=== PATIENT | male | born 1970 | race Caucasian/White ===

== ENCOUNTER 2022-10-25 08:10 | Outpatient (CLI) | payer OTHER, SELFPAY ==
[2022-10-25 13:40] LABS: Albumin* 4.4 g/dL (3.3-5.0); Chloride* 106 mmol/L (96-114); Sodium* 144 mmol/L (135-149)
[2022-10-25 13:41] LABS: Potassium* 4.5 mmol/L (3.6-5.1)
[2022-10-25 13:42] LABS: Cholesterol* 113 mg/dL (90-199)
[2022-10-25 13:43] LABS: Alanine Aminotransferase* 27 U/L (4-50); Alkaline Phosphatase* 66 U/L (40-150); Aspartate Amino Transferase* 19 U/L (12-35); Bilirubin Total* 0.7 mg/dL (0.1-1.5); Blood Urea Nitrogen* 28 mg/dL (7-30); Carbon Dioxide* 29 mmol/L (20-32); Creatinine* 1.1 mg/dL (0.5-1.5); Estimated Glomerular Filt Rate 80 ml/min; Glucose* 125 mg/dL (60-115); Total Protein* 7.1 g/dL (6.0-8.3); Triglycerides* 138 mg/dL (40-149)
[2022-10-25 13:44] LABS: Calcium* 9.5 mg/dL (8.4-10.6); HDL Cholesterol* 47 mg/dL (>=40); LDL Cholesterol Calculated 38 mg/dL (<100)
[2022-10-25 13:51] LABS: Creatinine Urine 202.8 mg/dL
[2022-10-25 14:06] LABS: TSH With Reflex to FT4* 0.592 uIU/mL (0.270-4.200)
[2022-10-25 14:07] LABS: Microalbumin Creatinine Ratio 10 mg/g (0-30); Microalbumin Urine 4 mg/dL
== END 2022-10-25 08:11 | disposition home or self-care (01) ==
PROVIDERS: PCP Physician Assistant Medical; Visit Provider Physician Assistant Medical
DX: Z00.00 Encounter for general adult medical examination without abnormal findings (principal); E11.9 Type 2 diabetes mellitus without complications; E78.5 Hyperlipidemia, unspecified; I10 Essential (primary) hypertension; D64.9 Anemia, unspecified; E66.9 Obesity, unspecified
CPT/HCPCS: 80053; 80061; 82043; 82570; 84443

== ENCOUNTER 2023-11-02 11:17 | Outpatient (CLI) | payer OTHER, MEDICARE, SELFPAY | END 2023-11-02 11:18 | disposition home or self-care (01) | PROVIDERS: PCP Physician Assistant Medical; Visit Provider Physician Assistant Medical | DX: Z12.5 Encounter for screening for malignant neoplasm of prostate (principal); E11.9 Type 2 diabetes mellitus without complications; E78.2 Mixed hyperlipidemia; I10 Essential (primary) hypertension | CPT/HCPCS: 80053; 80061; 82043; 82570; 84443; G0103 ==

== ENCOUNTER 2023-12-07 16:41 | Emergency (ER) | payer OTHER, MEDICARE, SELFPAY ==
[2023-12-07] VITALS (37 sets, daily range): BP systolic 131–167; BP diastolic 70–100; PULSE 77–95; RESP 14–18; TEMP 36.7–36.9; O2SAT 93–98; BMI 31.5
--- NOTE | 2023-12-07 17:05 | ED_ITS ---
HPI - General Adult General Date Seen: 12/07/23 Chief complaint: Alcohol/Intoxication Stated complaint: abdominal pain Time Seen by Provider: 12/07/23 16:52 History of Present Illness HPI narrative: 53-year-old male with history of hypertension, hyperlipidemia, diabetes, anxiety, GERD, obesity, alcohol abuse, hepatic steatosis, He has a history of alcoholism. He had been an alcoholic for many years but developed alcoholic pancreatitis about 3 years ago so required hospitalization. After that he went through treatment through [facility] and had been sober for years. He had been through treatment in had 3 years over until he relapsed. He has been drinking again for about 6 months. He says he thought he could start drinking just a little bit a few months ago but has been drinking more and more heavily lately. He has a little bit vague about how much she is drinking. He says he has been going through a small-bowel of Tequila every couple of days. He also did bought a 1.75 L of vodka on Monday and finished it yesterday. He says he is not drinking as much these days as he was years ago before he went through treatment. Beginning yesterday he started developed upper abdominal pain radiating through to his back that is reminiscent of his previous pancreatitis. He has been nauseous. Several episodes of bile vomiting but no bloody emesis. In He is having abdominal pain and feels like he is having pancreatitis. He is feeling shaky and tremulous. He is having goose bumps. He is tearful. Last drink was at about 3 or 4:00 a.m. yesterday, roughly 21-26 hours prior to presentation. He says he was forthright and admitted is drinking to his and kids. He has a psychiatrist for his mental health and has not told his psychiatrist that he has been drinking again for the past few months. He feels like his depression and anxiety have been reasonably well controlled. He is not suicidal He is worried about how his drinking might affect his children and his grandchildren Most recent checkup was in October with . Notes indicate that he is on disability needed his annual paperwork. He was on chronic pain meds but trying to wean off of them. He has chronic pain in his neck and back due to degenerative disc disease. Med list includes baclofen, gabapentin 300 q.h.s., topiramate. He had previously been on oxycodone and buprenorphine but weaned off that. He is no longer on buprenorphine. He has oxycodone p.r.n.. He says his pain doctor gave him 16 pills of oxycodone last month and he still probably has 10 left. Related Data Home Medications Medication Instructions Recorded Confirmed albuterol sulfate 2.5 mg/3 mL 2.5 mg continuous nebulization PRN 06/22/22 11/02/23 (0.083 %) solution for nebulization albuterol sulfate 90 mcg/actuation 2 inhalation PRN 06/22/22 11/02/23 aerosol inhaler aspirin 81 mg tablet,delayed 81 mg PO DAILY 06/22/22 12/07/23 release baclofen 5 mg tablet 10 mg PO QDAY 06/22/22 11/02/23 bupropion HCl 150 mg 24 hr tablet, 150 mg PO DAILY 06/22/22 12/07/23 extended release doxycycline hyclate 100 mg tablet 100 mg PO BID PRN 06/22/22 11/02/23 ibuprofen 800 mg tablet 800 mg PO PRN pain 06/22/22 11/02/23 sennosides 8.6 mg tablet (senna) 17.2 mg PO QPM 04/04/23 11/02/23 tamsulosin 0.4 mg capsule 0.4 mg PO DAILY 04/04/23 12/07/23 topiramate 25 mg tablet 75 mg PO QPM 04/04/23 12/07/23 trazodone 50 mg tablet 100 mg PO QPM PRN 04/04/23 12/07/23 gabapentin 600 mg tablet 300 mg PO QHS 11/02/23 11/02/23 baclofen 10 mg tablet 10 - 20 mg PO 3XD PRN muscle spasm 12/07/23 12/07/23 gabapentin 300 mg capsule 300 mg PO QPM 12/07/23 12/07/23 hydroxyzine HCl 25 mg tablet 25 mg PO QID PRN anxiety 12/07/23 12/07/23 oxycodone 5 mg tablet 5 mg PO DAILY PRN chronic pain 12/07/23 12/07/23 Previous Rx's Medication Instructions Recorded dulaglutide 3 mg/0.5 mL 3 mg (0.5 mL) subcut QWEEK #6 mL 10/17/23 subcutaneous pen injector (Trulicity) amlodipine 10 mg tablet 10 mg PO DAILY #90 tabs 11/02/23 atorvastatin 80 mg tablet 80 mg PO .Bedtime #90 tabs 11/02/23 carvedilol 12.5 mg tablet 12.5 mg PO BID #180 tabs 11/02/23 olmesartan 20 mg tablet 20 mg PO DAILY #90 tabs 11/02/23 pantoprazole 20 mg tablet,delayed 20 mg PO QAM for acid reflux #90 11/02/23 release tabs tadalafil 5 mg tablet 5 mg PO DAILY #90 tabs 11/02/23 Allergies Allergy/AdvReac Type Severity Reaction Status Date / Time celecoxib Allergy Severe Rash Verified 11/02/23 11:04 lisinopril Allergy Mild Cough Verified 11/02/23 11:04 rofecoxib Allergy Mild Rash Verified 11/02/23 11:04 duloxetine AdvReac Severe confusion, Verified 11/02/23 11:04 memory loss [facility] Medical History (Updated 12/07/23 @ 21:35 by Mateus Keys MD) Osteonecrosis of both hips ?M87.9 - Osteonecrosis, unspecified (ICD-10) Basal cell carcinoma of skin of left breast ?C44.511 - Basal cell carcinoma of skin of breast (ICD-10) Fracture of lumbar vertebra ?S32.009A - Unspecified fracture of unspecified lumbar vertebra, initial encounter for closed fracture (ICD-10) Alcohol-induced acute pancreatitis ?K85.20 - Alcohol induced acute pancreatitis without necrosis or infection (ICD-10) Surgical History History of cervical spinal surgery ?Z98.890 - Other specified postprocedural states (ICD-10) Status post biopsy of skin ?Z98.890 - Other specified postprocedural states (ICD-10) History of colonoscopy with polypectomy ?Z98.890 - Other specified postprocedural states (ICD-10) ?Z86.010 - Personal history of colonic polyps (ICD-10) History of cervical spinal arthrodesis ?Z98.1 - Arthrodesis status (ICD-10) Family History Father Prostate cancer Thyroid disease Other Degenerative disc disease Social History Narrative: Alcoholism- was in treatment 01/29 and stopped alcohol since Does not use illicit drugs Former smoker Smoking Status: Never smoker Little interest or pleasure in doing things: more than half the days Feeling down, depressed, or hopeless: more than half the days Exam Narrative: Exam Narrative: Constitutional: Appears well-developed and well-nourished. Alert. Conversant but at times tearful. Tremulous.. Non toxic. Pulse and blood pressure are normal. HENT: Head: Atraumatic. Nose: Nose normal. Mouth/Throat: Oral mucosa is clear and moist. no trismus. Pharynx normal. Tonsils symmetric. No tonsillar enlargement, erythema, or exudate. Eyes: Conjunctivae normal. EOM normal. Pupils equal, round, and reactive to light. No scleral icterus. Neck: Normal range of motion. Neck supple. No tracheal deviation present. Cardiovascular: Normal rate, regular rhythm. No gallop. No friction rub. No mu rmur heard. Symmetric radial artery pulses Pulmonary/Chest: Effort normal. No stridor. No respiratory distress. No wheezes. No rales. No rhonchi . No tenderness. Abdominal: Soft. Bowel sounds normal. No distension. No mass. Marked upper abdominal tenderness makes it difficult to palpate for hepatomegaly but I do not feel any definite need liver enlargement. No focal right upper quadrant tender ness. No rebound. No guarding. Musculoskeletal: RUE: Normal range of motion. No tenderness. No deformity LUE: Normal range of motion. No tenderness. No deformity RLE: Normal range of motion. No edema. No tenderness. No deformity LLE: Normal range of motion. No edema. No tenderness. No deformity Neurological: Alert and oriented to person, place, and time. Normal strength. CN II-VII intact. No sensory deficit. GCS eye subscore is 4. GCS verbal subscore is 5. GCS motor subscore is 6. Normal coordination Skin: Skin is warm and dry. No rash noted. No pallor. Normal capillary refill. Psychiatric: Tearful. Tremulous. Endorses heavy alcohol use. Last drink was yesterday about 26 hours ago. He wants to quit drinking again. Also concerned about his epigastric pain and concerned that he may have another bout of alcoholic pancreatitis. Const: Vital Signs, click to edit/add: Vital Signs - 24 hr 12/07/23 16:48 12/07/23 17:14 12/07/23 17:14 Temperature 98.3 F Pulse Rate 82 Pulse Rate [Pulse Oximeter] 88 Respiratory Rate 16 Blood Pressure Blood Pressure [Le ft Arm] Blood Pressure [Ri ght Upper Arm] 158/79 H Pulse Oximetry 98 96 98 Oxygen Delivery Me thod Room Air Room Air 12/07/23 17:15 12/07/23 17:30 12/07/23 17:32 Temperature Pulse Rate 95 85 83 Pulse Rate [Pulse Oximeter] Respiratory Rate Blood Pressure 151/83 H Blood Pressure [Le ft Arm] Blood Pressure [Ri ght Upper Arm] Pulse Oximetry 98 95 97 Oxygen Delivery Me thod 12/07/23 17:45 12/07/23 18:00 12/07/23 18:02 Temperature Pulse Rate 79 83 83 Pulse Rate [Pulse Oximeter] Respiratory Rate Blood Pressure 140/99 H Blood Pressure [Le ft Arm] Blood Pressure [Ri ght Upper Arm] Pulse Oximetry 95 93 95 Oxygen Delivery Me thod 12/07/23 18:15 12/07/23 18:30 12/07/23 18:31 Temperature Pulse Rate 86 82 81 Pulse Rate [Pulse Oximeter] Respiratory Rate Blood Pressure 144/92 H Blood Pressure [Le ft Arm] Blood Pressure [Ri ght Upper Arm] Pulse Oximetry 97 93 94 Oxygen Delivery Me thod 12/07/23 18:45 12/07/23 18:46 12/07/23 19:01 Temperature 98.5 F Pulse Rate 83 82 Pulse Rate [Pulse Oximeter] 80 Respiratory Rate 18 Blood Pressure Blood Pressure [Le ft Arm] 144/92 H Blood Pressure [Ri ght Upper Arm] Pulse Oximetry 96 96 94 Oxygen Delivery Me thod Room Air 12/07/23 19:02 12/07/23 19:15 Temperature Pulse Rate 82 81 Pulse Rate [Pulse Oximeter] Respiratory Rate Blood Pressure 144/84 H Blood Pressure [Le ft Arm] Blood Pressure [Ri ght Upper Arm] Pulse Oximetry 94 97 Oxygen Delivery Me thod Course Vital Signs Vital signs: Initial Vital Signs Temperature 98.3 F 12/07/23 16:48 Temperature Source Oral 12/07/23 16:48 Pulse Rate 88 12/07/23 16:48 Respiratory Rate 16 12/07/23 16:48 Blood Pressure 158/79 H 12/07/23 16:48 Blood Pressure Mean 105 12/07/23 16:48 Blood Pressure Position Sitting 12/07/23 16:48 Pulse Oximetry 98 12/07/23 16:48 Oxygen Delivery Method Room Air 12/07/23 16:48 Vital Signs Temperature 98.3 F 12/07/23 16:48 Pulse Rate 88 12/07/23 16:48 Respiratory Rate 16 12/07/23 16:48 Blood Pressure 158/79 H 12/07/23 16:48 Pulse Oximetry 98 12/07/23 16:48 Oxygen Delivery Method Room Air 12/07/23 16:48 Temperature 98.5 F 12/07/23 18:46 Pulse Rate 81 12/07/23 19:15 Respiratory Rate 18 12/07/23 18:46 Blood Pressure 144/84 H 12/07/23 19:02 Pulse Oximetry 97 12/07/23 19:15 Oxygen Delivery Method Room Air 12/07/23 18:46 Medications Administered Medications: Generic Name Dose Route Start Last Admin Trade Name Freq PRN Reason Stop Dose Admin Hydromorphone HCl 1 mg 12/07/23 17:23 12/07/23 17:36 Hydromorphone 0.5 Mg/0.5 Ml Inj IVP 1 mg Q1H PRN Administration Pain Lorazepam 1 - 2 mg 12/07/23 17:23 12/07/23 18:49 Lorazepam 2 Mg/Ml Inj IVP 1 mg Q1H PRN Administration Discontinued Medications Generic Name Dose Route Start Last Admin Trade Name Freq PRN Reason Stop Dose Admin Folic Acid 1 mg/ Multivitamins 1,011.2 mls @ 252.8 mls/hr 12/07/23 17:24 12/07/23 18:00 10 ml/ Thiamine HCl 100 mg/ IV 12/07/23 21:23 252.8 mls/hr Sodium Chloride .Q4H SCOTT Administration Ondansetron HCl 4 mg 12/07/23 17:23 12/07/23 17:34 Ondansetron 2 Mg/Ml Inj IVP 12/07/23 17:24 4 mg ONCE ONE Administration Medical Decision Making MDM Narrative Medical decision making narrative: 53-year-old male with a history of alcohol abuse, relapse for the past several months drinking heavily for the past few days presents to the ER today about 24 hours after his last drink with concern for tremulousness, anxiety, nausea, as well as epigastric abdominal pain. He was concerned he might have a recurrent bout of alcoholic pancreatitis. 1. Abdominal pain. Laboratory workup fortunately reassuring. Lipase normal. Patient really says that he had a bout of pancreatitis about 3 years ago and has not had any trouble with it since then. Therefore with acute pain today, I think this would represent acute pancreatitis. Lipase is normal is reassuring. Doubtful to represent chronic pancreatitis in the absence of any symptoms for the past 3 years. At this point I do not think the patient needs to be admitted from a pancreatitis standpoint. 2. Liver. Patient does have history of alcohol abuse. LFTs are normal. 3. Renal/electrolytes. Patient does have borderline hypokalemia with a potassium of 3.5. Kidney function normal. BUN is 23 and creatinine 1.0 which probably suggest prerenal/dehydration. IV fluids administered here in the ER. 4. Alcohol withdrawal. Patient did present with nausea, abdominal pain, tremulousness, goosebumps. Initial CIWA scale was 18. After 1 mg Ativan came down to 13. After a 2nd mg came down further. Patient is clinically looking and feeling better after IV benzos. He is feeling much better in is only minimally tremulous after meds. He passed p.o. challenge and is doing well. Upper abdominal pain is also improving Discussed with the patient's , by speaker phone. She is willing to come pick him up. At this point with reasonable clinical compensate think it is reasonable to try to manage his alcohol withdrawal in an outpatient basis. Prescriptions for Instymeds Ativan 1 tablet every 4-6 hours as needed for withdrawal symptoms. His height my full help monitor is withdrawal and she will controlled meds to avoid any overdose or mixing with alcohol. Prescription for Zofran, Instymeds, provided to use for nausea. Precautions for return to the ER reviewed with the patient and his . Benzo precautions reviewed. Questions answered. Plan will be outpatient follow-up with primary care and Psychiatry for ongoing alcohol treatment. He is instructed to return to the ER if any worsening all call withdrawal symptoms, or worsening abdominal pain, fever, migratory pain, uncontrolled vomiting, or any concerns. Lab Data Labs: Lab Results 12/07/23 12/07/23 Range/Units 17:10 17:23 WBC 7.73 (4.50-11.00) K/uL RBC 4.07 L (4.30-5.90) m/uL Hgb 13.6 (13.5-17.5) gm/dL Hct 39.3 (37.0-53.0) % MCV 97 (80-100) fL MCH 33 (26-34) pg MCHC 35 (32-36) gm/dL RDW Coeff of Jamse 12.1 (11.5-15.5) % Plt Count 232 (140-440) K/uL Neut % (Auto) 73.5 H (42.0-72.0) % Lymph % (Auto) 19.9 L (20-44) % Gordon % (Auto) 5.4 (0.0-11.0) % Eos % (Auto) 1.0 (0.0-7.0) % Baso % (Auto) 0.1 (0.0-3.0) % Neut # (Auto) 5.70 (1.7-7.0) K/uL Lymph # (Auto) 1.50 (0.90-2.90) K/uL Gordon # (Auto) 0.40 (0.00-0.90) K/UL Eos # (Auto) 0.08 (0.00-0.50) K/uL Baso # (Auto) 0.01 (0.00-0.30) K/uL Abs Immat Gran (auto) 0.01 (0.00-0.30) K/uL Imm/Tot Granulo (auto) 0.1 % Sodium 136 (135-149) mmol/L Potassium 3.5 L (3.6-5.1) mmol/L Chloride 106 (96-114) mmol/L Carbon Dioxide 25 (20-32) mmol/L Anion Gap 5 L (7-15) mEq/L BUN 23 (7-30) mg/dL Creatinine 1.0 (0.5-1.5) mg/dL Estimated Creat Clear 97.04 Estimated GFR 89 ml/min Glucose 113 (60-115) mg/dL Lactate 0.6 (0.5-1.9) mmol/L Calcium 9.1 (8.4-10.6) mg/dL Magnesium 1.7 (1.5-2.6) mg/dL Total Bilirubin 1.2 (0.1-1.5) mg/dL AST 34 (12-35) U/L ALT 21 (4-50) U/L Alkaline Phosphatase 77 (40-150) U/L Total Protein 7.6 (6.0-8.3) g/dL Albumin 4.4 (3.3-5.0) g/dL Lipase 287 (23-300) U/L Ethyl Alcohol < 0.01 L (0.01-0.03) % Lab Acknowledgement Test Added Discharge Plan Discharge Clinical Impression: Alcohol withdrawal, Abdominal discomfort, epigastric Patient Disposition: Home w/ Parent or Adult Condition: Stable Instructions: Alcohol Withdrawal (DC), Abdominal Pain (ED) Additional Instructions: As we discussed, monitor for signs of alcohol withdrawal such as shakiness, anxiety, nausea, sweatiness, hallucinations, or confusion. Use Ativan 1 mg every 4-6 hours as needed for withdrawal. If you have worsening symptoms that are not getting better with Ativan, return to the ER right away. For your upper abdominal pain there is no sign of pancreatitis today. This may be stomach acid corona on the lining of your stomach from alcohol. Please drink plenty of fluids and stick to a bland diet for 2-3 days and this should get better. If your abdominal pain gets worse, spreads year lower abdomen, or if you develop a fever, have uncontrolled vomiting, or if you have any other concerns, return to the ER right away. Use caution with Ativan because it can cause drowsiness. Do not mix it with alcohol. Do not drive for at least 8 hours after taking Ativan. Please follow-up with your regular doctor and with your psychiatrist for further alcohol treatment. Prescriptions: No Action gabapentin 600 mg tablet 300 mg PO QHS amlodipine 10 mg tablet 10 mg PO DAILY Qty: 90 3RF atorvastatin 80 mg tablet 80 mg PO .Bedtime Qty: 90 3RF carvedilol 12.5 mg tablet 12.5 mg PO BID Qty: 180 3RF olmesartan 20 mg tablet 20 mg PO DAILY Qty: 90 3RF pantoprazole 20 mg tablet,delayed release (DR/EC) 20 mg PO QAM Qty: 90 3RF tadalafil 5 mg tablet 5 mg PO DAILY Qty: 90 3RF bupropion HCl 150 mg tablet extended release 24 hr 150 mg PO DAILY baclofen 5 mg tablet 10 mg PO QDAY albuterol sulfate 90 mcg/actuation HFA aerosol inhaler 2 inhalation PRN albuterol sulfate 2.5 mg /3 mL (0.083 %) solution for nebulization 2.5 mg continuous nebulization PRN aspirin 81 mg tablet,delayed release (DR/EC) 81 mg PO DAILY doxycycline hyclate 100 mg tablet 100 mg PO BID PRN Rx Instructions: TAKE ACCORDING TO ACTION PLAN. ibuprofen 800 mg tablet 800 mg PO PRN (Reason: pain) Patient Comments: TAKE 1 TABLET BY MOUTH EVERY 8 HOURS WITH FOOD NEEDED trazodone 50 mg tablet 100 mg PO QPM PRN topiramate 25 mg tablet 75 mg PO QPM sennosides [senna] 8.6 mg tablet 17.2 mg PO QPM tamsulosin 0.4 mg capsule 0.4 mg PO DAILY baclofen 10 mg tablet 10 - 20 mg PO 3XD PRN (Reason: muscle spasm) gabapentin 300 mg capsule 300 mg PO QPM hydroxyzine HCl 25 mg tablet 25 mg PO QID PRN (Reason: anxiety) oxycodone 5 mg tablet 5 mg PO DAILY PRN (Reason: chronic pain) Trulicity 3 mg/0.5 mL pen injector 3 mg subcut QWEEK Qty: 6 3RF Follow Up/Referrals: Arminda Patel PA-C [Primary Care Provider] - Stand Alone Forms: [facility] Info Instructions
[2023-12-07 17:16] LABS: Lactate* 0.6 mmol/L (0.5-1.9)
[2023-12-07 17:19] LABS: Hematocrit 39.3 % (37.0-53.0); Hemoglobin* 13.6 gm/dL (13.5-17.5); Lymphocytes Percent Auto 19.9 % (20-44); Mean Corpuscular HGB Conc 35 gm/dL (32-36); Mean Corpuscular Hemoglobin 33 pg (26-34); Mean Corpuscular Volume 97 fL (80-100); Monocytes Percent Auto 5.4 % (0.0-11.0); Neutrophils Percent Auto 73.5 % (42.0-72.0); Platelet Count* 232 K/uL (140-440); RDW Coefficient of Variation % 12.1 % (11.5-15.5); Red Blood Count 4.07 m/uL (4.30-5.90); White Blood Count* 7.73 K/uL (4.50-11.00)
[2023-12-07 17:20] LABS: Basophils Absolute Auto 0.01 K/uL (0.00-0.30); Basophils Percent Auto 0.1 % (0.0-3.0); Eosinophils Absolute Auto 0.08 K/uL (0.00-0.50); Immature Granulocytes Abs Auto 0.01 K/uL (0.00-0.30); Immature Granulocytes Pct Auto 0.1 %
[2023-12-07 17:27] LABS: Slide Review Reflex No
[2023-12-07] MEDS: ONDANSETRON 2 MG/ML inj 4 MG IVP (17:34)
[2023-12-07] MEDS: LORazepam 2 MG/ML inj IVP ×3 (17:36→22:25)
[2023-12-07] MEDS: HYDROmorphone 0.5 mg/0.5 ml inj 1 MG IVP ×2 (17:36→22:22)
[2023-12-07 17:38] LABS: Albumin* 4.4 g/dL (3.3-5.0); Chloride* 106 mmol/L (96-114); Sodium* 136 mmol/L (135-149)
[2023-12-07 17:39] LABS: Potassium* 3.5 mmol/L (3.6-5.1)
[2023-12-07 17:40] LABS: Est. Creatinine Clearance* 97.04; Estimated Glomerular Filt Rate 89 ml/min
[2023-12-07 17:41] LABS: Alkaline Phosphatase* 77 U/L (40-150); Anion Gap 5 mEq/L (7-15); Aspartate Amino Transferase* 34 U/L (12-35); Bilirubin Total* 1.2 mg/dL (0.1-1.5); Blood Urea Nitrogen* 23 mg/dL (7-30); Calcium* 9.1 mg/dL (8.4-10.6); Carbon Dioxide* 25 mmol/L (20-32); Glucose* 113 mg/dL (60-115); Lipase* 287 U/L (23-300); Total Protein* 7.6 g/dL (6.0-8.3)
[2023-12-07 17:42] LABS: Alanine Aminotransferase* 21 U/L (4-50); Magnesium* 1.7 mg/dL (1.5-2.6)
[2023-12-07 17:57] LABS: Ethanol* < 0.01 % (0.01-0.03)
== END 2023-12-07 22:42 | disposition home or self-care (01) ==
PROVIDERS: Emergency Provider Emergency Medicine; PCP Physician Assistant Medical
DX: R10.13 Epigastric pain (principal); F10.239 Alcohol dependence with withdrawal, unspecified
CPT/HCPCS: 36415; 80053; 82077; 83605; 83690; 83735; 85025; 94761; 96374; 96375; 99284; J1170; J2060; J2405; J3411; J7030

== ENCOUNTER 2024-04-29 13:53 | Outpatient (CLI) | payer OTHER, MEDICARE, SELFPAY ==
--- OUTSIDE RECORDS SUMMARY | 2024-04-29 13:59 | XMS_ITS | Referral Summary ---
Author Organization [facility] Address [address] [place] [address] Care Team Providers Care Silo Painter Name Role Phone Arminda Patel PA-C Primary Care Provider [phone] Allergies Active Allergy Reactions Criticality Noted Date Comments Celecoxib High 02/15/2021 Other reaction(s): rash Duloxetine High 02/15/2021 Other reaction(s): Confusion, memory loss Fd&C Blue #2 (Indigotine) High 02/15/2021 Other reaction(s): Confusion, memory loss Gabapentin High 02/15/2021 Other reaction(s): depression-brain fog with high dose, tolerates lower doses Lisinopril Cough Low 02/15/2021 Rofecoxib Low 02/15/2021 Other reaction(s): rash Medications Medication Sig Dispensed Refills Start Date End Date Status albuterol (PROAIR HFA/PROVENTIL HFA/VENTOLIN HFA) 108 (90 Base) MCG/ACT inhaler 2 puffs every 4 hours as needed 02/01/2021 Active albuterol (PROVENTIL) (2.5 MG/3ML) 0.083% neb solution 2.5 mg every 4 hours as needed 11/12/2020 Active amLODIPine (NORVASC) 10 MG tablet Take 10 mg by mouth at bedtime 01/28/2021 Active atorvastatin (LIPITOR) 80 MG tablet Take 80 mg by mouth At Bedtime 12/01/2020 Active diclofenac (VOLTAREN) 1 % topical gel Apply 4 g topically 4 times daily as needed 12/05/2020 Active doxycycline hyclate (VIBRA-TABS) 100 MG tablet Take 100 mg by mouth as needed Copd as needed, twice daily 11/02/2020 Active TRULICITY 3 MG/0.5ML SOPN Inject 3 mg Subcutaneous once a week 12/12/2020 Active TRELEGY ELLIPTA 100-62.5-25 MCG/INH oral inhaler Inhale 1 puff into the lungs as needed Daily as needed in spring time 02/01/2021 Active ONETOUCH ULTRA test strip USE 1 TEST STRIP DAILY 12/19/2020 Active loperamide (IMODIUM) 2 MG capsule Take 2 mg by mouth 4 times daily as needed 02/11/2021 Active metFORMIN (GLUCOPHAGE) 1000 MG tabletIndications: Type 2 Diabetes Mellitus Take 1,000 mg by mouth daily (with dinner) 02/08/2021 Active methylPREDNISolone (MEDROL) 32 MG tablet Take 32 mg by mouth as needed copd 11/02/2020 Active NARCAN 4 MG/0.1ML nasal spray 02/16/2021 Active ondansetron (ZOFRAN-ODT) 4 MG ODT tab Take 4 mg by mouth every 6 hours as needed 04/10/2020 Active pantoprazole (PROTONIX) 20 MG EC tablet Take 20 mg by mouth daily 12/01/2020 Active tiZANidine (ZANAFLEX) 2 MG tablet Take 4 mg by mouth 3 times daily as needed 01/02/2021 Active topiramate (TOPAMAX) 25 MG tablet Take 50 mg by mouth at bedtime 02/16/2021 Active traZODone (DESYREL) 50 MG tablet Take 50 mg by mouth at bedtime 12/14/2020 Active tamsulosin (FLOMAX) 0.4 MG capsule Take 0.4 mg by mouth every evening Active olmesartan (BENICAR) 20 MG tablet Take 20 mg by mouth daily Active carvedilol (COREG) 12.5 MG tablet Take 12.5 mg by mouth 2 times daily (with meals) Active buprenorphine (SUBUTEX) 2 MG SUBL sublingual tablet Place 2 mg under the tongue 2 times daily Active cetirizine (ZYRTEC) 10 MG tablet Take 10 mg by mouth daily Active sennosides (SENOKOT) 8.6 MG tablet Take 2 tablets by mouth at bedtime Active tadalafil (CIALIS) 5 MG tablet Take 5 mg by mouth every 24 hours Active gabapentin (NEURONTIN) 100 MG capsule Take 300 mg by mouth at bedtime Active buPROPion (WELLBUTRIN XL) 150 MG 24 hr tablet Take 150 mg by mouth every morning Active baclofen (LIORESAL) 10 MG tablet Take 20 mg by mouth at bedtime Active acetaminophen (TYLENOL) 325 MG tabletIndications: Status post total replacement of left hip Take 2 tablets (650 mg) by mouth every 4 hours as needed for other (mild pain) 100 tablet 07/18/2023 Active aspirin 81 MG EC tabletIndications: Status post total replacement of left hip Take 1 tablet (81 mg) by mouth 2 times daily 60 tablet 07/18/2023 Active senna-docusate (SENOKOT-S/PERICOL DENIZ) 8.6-50 MG tabletIndications: Status post total replacement of left hip Take 1-2 tablets by mouth 2 times daily as needed for constipation Take while on oral narcotics to prevent or treat constipation. 30 tablet 07/18/2023 Active polyethylene glycol (MIRALAX) 17 g packetIndications: Status post total replacement of left hip Take 17 g by mouth daily 7 packet 07/18/2023 Active ibuprofen (ADVIL/MOTRIN) 600 MG tabletIndications: Status post total replacement of left hip Take 1 tablet (600 mg) by mouth every 6 hours as needed for mild pain 30 tablet 07/18/2023 Active hydrOXYzine (ATARAX) 25 MG tabletIndications: Status post total replacement of left hip Take 1 tablet (25 mg) by mouth every 6 hours as needed for itching or anxiety (with pain, moderate pain; sleep aid) 30 tablet 07/18/2023 Active HYDROmorphone (DILAUDID) 4 MG tabletIndications: Status post total replacement of left hip Take 1 tablet (4 mg) by mouth every 3 hours as needed for severe pain 25 tablet 07/19/2023 Active Active Problems Problem Noted Date Diagnosed Date S/P total hip arthroplasty 07/18/2023 Social History Tobacco Use Types Packs/Day Years Used Date Smoking Tobacco: Former Cigarettes Smokeless Tobacco: Former Alcohol Use Standard Drinks/Week Comments Not Currently 0 (1 standard drink = 0.6 oz pur e alcohol) quit drinking 2 years ago Adolescent Education Answer Date Record ed Getting School Help Needed Not on file 09/27 /2023 Sex and Gender Information Value Date Recorded Sex Assigned at Not on file Gender Identity Not on file Sexual Orientation Not on file Last Filed Vital Signs Vital Sign Reading Time Taken Comments Blood Pressure 138/76 07/19/2023 8:08 AM [employer] Pulse 78 07/19/2023 8:08 AM [employer] Temperature 37 ??C (98.6 ??F) 07/19/2023 8:08 AM [employer] WORK[employer] Respiratory Rate 18 07/19/2023 8:08 AM [employer] WORK[employer] Oxygen Saturation 98% 07/19/2023 8:08 AM [employer] Inhaled Oxygen Concentration - - Weight 108.9 kg (240 lb) 07/18/2023 6:20 AM [employer] Height 188 cm (6' 2) 07/18/2023 6:20 AM [employer] Body Mass Index 30.81 07/18/2023 6:20 AM [employer] Plan of Treatment Not on file Goals Goal Patient Goal Type Associated Problems Recent Progress Patient-Stated? Author Total Joint Replacement Hip Pathway Care Plan Total Joint Replacement Hip Pathway No [employer] Implanted Type Area Charter Pilot Device Identifier Shelf Expiration Date Model / Serial / Lot Imp Liner Hip Depuy Coden Altrx [id number] +[id number] 1221-36-456 - [id number] Implanted:Qty : 1 on 07/18/2023 by Chaz Shirley MD at [facility] Total Joint Componen t/Insert Left: Hip [employer] [id number] 11/09/2027 1221-36-456 / / [id number] Imp Shell Acet Depuy Coden Gription 56mm [id number] - [id number] Implanted:Qty : 1 on 07/18/2023 by Chaz Shirley MD at [facility] Total Joint Componen t/Insert Left: Hip [employer] [id number] 02/08/2033 [id number] / / [id number] Imp Head Femoral Depuy Ceramic 36mm +5mm [id number] - [id number] Implanted:Qty : 1 on 07/18/2023 by Chaz Shirley MD at [facility] Total Joint Componen t/Insert Left: Hip [employer] [id number] 05/11/2028 1365-36-320 / / [id number] Imp Stem Fem Depuy Actis Std Collar Tpr Sz 7mm 1010-11-070 - [id number] Implanted:Qty : 1 on 07/18/2023 by Chaz Shirley MD at [facility] Total Joint Componen t/Insert Left: Hip [facility]- [id number] 10/11/2032 [id number] / / [id number] Procedures Procedure Name Priority Date/Time Associated Diagnosis Comments GLUCOSE BY METER Routine 07/19/2023 6:[address] CHEST W/O CONTRAST Routine 09/21/2020 11:19 AM G[employer] WORKMAN from Last 3 Months or Most Recently Relevant to Health Maintenance Results * (ABNORMAL) Glucose by meter (07/19/2023 6:05 AM [employer] WORK[employer]) GLUCOSE BY METER POCT 112(H) 70 - 99 mg/dL 07/19/2023 6:12 AM G[employer] WORKMAN [facility] POCT RESULTS Blood, Capillary BLOOD SPECIMEN / Unknown 07/19/2023 6:05 AM G[employer] WORKMAN 07/19/2023 6:12 AM [employer] WORKMAN Chaz Shirley MD [facility] POCT [facility] POCT RESULTS [address] [place] [address] from Last 3 Months or Most Recently Relevant to Health Maintenance Additional Health Concerns Active Problems Noted Date Diagnosed Date Total Joint Replacement Hip Pathway 05/17/2023 Advance Directives For more information, please contact: [phone] * Full Code (Latest Code Status on File) Date Activated Date Inactivated Comments 07/18/2023 1:08 PM 07/19/2023 12:04 PM All basic a nd advanced life-sustaining interventions are performed as appropriate Question Answer Comments Code status determined by: Unable to dis cuss and no AD/POLST on file; continue PREVIOUSLY ORDERED code status Care Teams Silo Painter Relationship Specialty Start Date End Date Arminda Patel PA-C [place] [address] [place] [address] PCP - General 06/13/23
--- OUTSIDE RECORDS SUMMARY | 2024-04-29 13:59 | XMS_ITS | Clinical Summary ---
Author Organization [facility] Address [address] [place] [address] Care Team Providers Care Healthcare Customer Service Name Role Phone Arminda Patel PA-C Primary Care Provider [phone] Allergies Active Allergy Reactions Criticality Noted Date [...] Comments Blood Pressure 138/76 07/19/2023 8:08 AM GUNCOT[employer] P[employer]ER Pulse 78 07/19/2023 8:08 AM [employer] P[employer]ER Temperature 37 ??C (98.6 ??F) 07/19/2023 8:08 AM [employer] P[employer]ER Respiratory Rate 18 07/19/2023 8:08 AM [employer] P[employer]ER Oxygen Saturation 98% 07/19/2023 8:08 AM [employer] PACKER Inhaled Oxygen Concentration - - Weight 108.9 kg (240 lb) 07/18/2023 6:20 AM GUNCOT[employer] PACKER Height 188 cm (6' 2) 07/18/2023 6:20 AM [employer] P[employer] Body Mass Index 30.81 07/18/2023 6:20 AM GUNC[employer]TON PACKER Plan of Treatment Health Maintenance Due Date Last Done Comments ADVANCE CARE PLANNING 1968 ANNUAL REVIEW OF HM ORDERS 1968 CT COLONOGRAPHY 1968 FIT 1968 FLEX SIG 1968 LIPID 1968 sDNA (Cologuard) 1968 COLONOSCOPY 1978 COLORECTAL CANCER SCREENING 1978 HIV SCREENING 12/05/1983 HEPATITIS C SCREENING 1986 MEDICARE ANNUAL WELLNESS VISIT 1986 ZOSTER IMMUNIZATION (1 of 2) 2018 LUNG CANCER SCREENING 09/21/2021 09/21/2020, 020 COVID-19 Vaccine ( season) 2023 10/25/2021, 12/19/2020, 11/28/2020 PHQ-2 (once per calendar year) 2023 INFLUENZA VACCINE (#1) 2024 3, 06/22/2022, 06/23/2021, Additional history exists GLUCOSE 07/19/2026 07/19/2023, 04/2023, 07/18/2023, Additional history exists DTAP/TDAP/TD IMMUNIZATION (3 - Td or Tdap) 06/15/2027 06/15/2017, 08/27/2010, 09/11/1998 HEPATITIS B IMMUNIZATION Completed 014, 09/20/2013, 08/12/2013 Pneumococcal Vaccine: Pediatrics (0 to 5 Years) and At-Risk Patients (6 to 64 Years) Aged Out 07/06/2018 No longer eligible based on patient's age to complete this topic HPV IMMUNIZATION Aged Out No longer e ligible based on patient's age to complete this topic IPV IMMUNIZATION Aged Out No longer e ligible based on patient's age to complete this topic MENINGITIS IMMUNIZATION Aged Out No l onger eligible based on patient's age to complete this topic RSV MONOCLONAL ANTIBODY Aged Out No l onger eligible based on patient's age to complete this topic Goals Goal Patient Goal Type Associated Problems Recent Progress Patient-Stated? Author Total Joint Replacement Hip Pathway Care Plan Total Joint Replacement Hip Pathway No [employer] Implanted Type Area Fairing Man Device Identifier Shelf Expiration Date Model / Serial / Lot Imp Liner Hip Depuy [place] Altrx [id number] +[id number] 1221-36-456 - [id number] Implanted:Qty : 1 on 07/18/2023 by Chaz Shirley MD at [facility] Total Joint Componen t/Insert Left: Hip [employer] [id number] 11/09/2027 1221-36-456 / / [id number] Imp Shell Acet Depuy [place] Gription 56mm [id number] - [id number] Implanted:Qty : 1 on 07/18/2023 by Chaz Shirley MD at [facility] Total Joint Componen t/Insert Left: Hip [employer]- [id number] 02/08/2033 [id number] / / [id number] Imp Head Femoral Depuy Ceramic 36mm +5mm [id number] - [id number] Implanted:Qty : 1 on 07/18/2023 by Chaz Shirley MD at [facility] Total Joint Componen t/Insert Left: Hip [employer]- [id number] 05/11/2028 1365-36-320 / / [id number] Imp Stem Fem Depuy Actis Std Collar Tpr Sz 7mm 1010-11-070 - [id number] Implanted:Qty : 1 on 07/18/2023 by Chaz Shirley MD at [facility] Total Joint Componen t/Insert Left: Hip J&J [facility]- [id number] 10/11/2032 [id number] / / [id number] Procedures Procedure Name Priority Date/Time Associated Diagnosis Comments GLUCOSE BY METER Routine 07/19/2023 6:[address] CHEST W/O CONTRAST Routine 09/21/2020 11:19 AM [employer] PACKER from Last 3 Months or Most Recently Relevant to Health Maintenance Results * (ABNORMAL) Glucose by meter (07/19/2023 6:05 AM G[employer] PACKER) GLUCOSE BY METER POCT 112(H) 70 - 99 mg/dL 07/19/2023 6:12 AM [employer] PACKER [facility] POCT RESULTS Blood, Capillary BLOOD SPECIMEN / Unknown 07/19/2023 6:05 AM [employer] P[employer]ER 07/19/2023 6:12 AM [employer] P[employer]ER Chaz Shirley MD [facility] POCT [facility] POCT RESULTS [address] [place] [address] from Last 3 Months or Most Recently Relevant to Health Maintenance Additional Health Concerns Active Problems Noted Date Diagnosed Date Total Joint Replacement Hip Pathway 05/17/2023 Advance Directives For more information, please contact: [phone] * Full Code (Latest Code Status on File) Date Activated Date Inactivated Comments 07/18/2023 1:08 PM 07/19/2023 12:04 PM All basic a nd advanced life-sustaining interventions are performed as appropriate Question Answer Comments Code status determined by: Unable to dis cuss and no AD/POLST on file; continue PREVIOUSLY ORDERED code status Care Teams Healthcare Customer Service Relationship Specialty Start Date End Date Arminda Patel PA-C [place] [address] [place] [address] PCP - General 06/13/23
--- OUTSIDE RECORDS SUMMARY | 2024-04-29 14:00 | XMS_ITS | Clinical Summary ---
Author Organization [facility] Address [place], [place] [address] Care Team Providers Care Flight Test Data Acquisition Technician Name Role Phone Unavailable Primary Care Provider Unavailabl e Allergies Active Allergy Reactions Criticality Noted Date Comments Lisinopril Cough 12/15/2015 Rofecoxib Rash 01/05/2006 vioxx Medications Medication Sig Dispensed Refills Start Date End Date Status indomethacin (INDOCIN) 50 mg capsuleIndications:Gr eat toe pain 1 oral three times daily for 2 days with meals, then twice daily for 2 days, then daily for a day, as needed for gout or toe pain attacks 90 capsule 1 04/02/2014 Active Blood-Glucose Meter (ONE TOUCH VERIO IQ METER)Indications:Kristie betes mellitus, type 2 (HC) Dispense glucose meter, test strips and lancets covered by the patient insurance. Test 1 times per day. Diagnosis diabetes mellitus 1 Device 0 12/24/2014 Active lancets (ONE TOUCH DELICA) 33 gauge miscIndications:Diabe kia mellitus, type 2 (HC) As directed. Dispense item covered by pt ins. 250.00 NIDDM type II - Test 1 time/day 90 Each 2 12/24/2014 Active blood sugar diagnostic (ONETOUCH ULTRA TEST) stripIndications:Diab etes type 2, controlled (HC) Dispense item covered by pt ins. 250.00 NIDDM type II - Test 1 time/day 90 Strip 3 04/06/2016 Active medication order composerIndications:S jhoan stenosis in cervical region,Cervical spondylosis with myelopathy,Cervicalgi a P34X - GEOFF/MELOX/ADALBERTO/B UP/CLON/CYC/MEHREEN/ PENT 10//1/0.2/2/6 /3% Apply 1-2 gm to affected area 3-4 times daily. Rub in for 1-2 minutes 240 g 0 04/06/2016 Active diclofenac 1 % topical (VOLTAREN) gelIndications:Cervic algia Apply twice daily as needed to neck due to pain 1 Tube 3 06/24/2016 Active amLODIPine (NORVASC) 10 mg tabletIndications:HTN (hypertension), benign Take 1 tablet by mouth once daily. 90 tablet 2 06/24/2016 Active aspirin (ECOTRIN) 81 mg enteric coated tabletIndications:HTN (hypertension), benign Take 1 tablet by mouth once daily with a meal. 0 09/21/2016 Active ranitidine (ZANTAC) 150 mg tabletIndications:Gas troesophageal reflux disease, esophagitis presence not specified Take 1 tablet by mouth 2 times daily. 60 tablet 11/29/2016 Active albuterol (PROVENTIL) 0.083 % neb solutionIndications:C OPD exacerbation (HC) Inhale 3 mL via a nebulizer every 6 hours if needed. 1 box 12/28/2016 Active metoprolol succinate SR (TOPROL XL) 200 mg Sustained-Release tabletIndications:HTN (hypertension), benign Take 1 tablet by mouth once daily. 90 tablet 12/28/2016 Active pantoprazole (PROTONIX) 20 mg tabletIndications:Gas troesophageal reflux disease, esophagitis presence not specified Take 1 tablet by mouth once daily. 90 tablet 2 12/28/2016 Active budesonide (PULMICORT) 1 mg/2 mL neb suspensionIndications :Chronic obstructive pulmonary disease, unspecified COPD type (HC) Inhale 1 mg via a nebulizer 2 times daily. For acute COPD flare up 15 mL 1 01/04/2017 Active albuterol HFA 90 mcg/actuation inhalerIndications:Ch ronic obstructive pulmonary disease, unspecified COPD type (HC) Inhale 2 Puffs by mouth every 4 hours if needed. 1 Inhaler 01/04/2017 Active fluticasone (FLOVENT) 220 mcg/Actuation inhalerIndications:Ch ronic obstructive pulmonary disease, unspecified COPD type (HC) Inhale 1 Puff by mouth 2 times daily. 1 Inhaler 3 01/04/2017 Active losartan (COZAAR) 100 mg tabletIndications:HTN (hypertension), benign TAKE ONE TABLET BY MOUTH EVERY DAY 90 tablet 1 01/10/2017 Active furosemide (LASIX) 40 mg tabletIndications:HTN (hypertension), benign,Peripheral edema TAKE ONE TABLET BY MOUTH EVERY MORNING 90 tablet 02/01/2017 Active metFORMIN (GLUCOPHAGE) 1,000 mg tabletIndications:Typ e 2 diabetes mellitus with complication, without long-term current use of insulin (HC) TAKE ONE TABLET BY MOUTH TWICE A DAY WITH MEALS 120 tablet 02/01/2017 Active atorvastatin (LIPITOR) 80 mg tabletIndications:Hyp erlipidemia, unspecified hyperlipidemia type TAKE ONE TABLET BY MOUTH EVERY DAY 90 tablet 02/01/2017 Active TRULICITY 1.5 mg/0.5 mL injectionIndications: Diabetes type 2, controlled (HC) INJECT 1.5MG ONCE A WEEK 4 Each 03/09/2017 Active tiZANidine (ZANAFLEX) 2 mg tabletIndications:Cer vicalgia Take 1 tablet by mouth at bedtime. 30 tablet 03/09/2017 Active sildenafil citrate (VIAGRA) 100 mg tabletIndications:Ere ctile dysfunction, unspecified erectile dysfunction type Take 1 tablet by mouth once daily if needed for Erectile Dysfunction. Dispense generic 45 tablet 1 03/25/2017 Active HYDROcodone-acetamino phen, 5-325 mg, (NORCO) per tabletIndications:Spi nal stenosis in cervical region,Cervical spondylosis with myelopathy Take 1 tablet twice daily as needed for severe pain Max 60 tablets/month. 60 tablet 04/05/2017 Active fluticasone (50 mcg per actuation) nasal solution (FLONASE)Indications: Non-seasonal allergic rhinitis due to pollen INHALE ONE SPRAY INTO EACH NOSTRIL EVERY DAY 16 g 05/05/2017 Active Active Problems Problem Noted Date Diagnosed Date Type 2 diabetes mellitus wit h complication, without long-term current use of insulin 09/21/2016 Right peroneal tendonosis 06/07/2016 Controlled substance agreement signed 04/09/2016 Overview: CSA 04/06/16 diagnosis: Chronic neck pain, s/p C-spine fusion x 2, discharged from Orthopedics. Girard 5/325 1 tab twice daily,# 60/month 90 day supply printed at visits. Family Fresh . Toxassure at next visit. Chronic obstructive pulmonary disease 12/15/2015 Hyperlipidemia 11/14/2014 Gout 02/28/2014 FHx: prostate cancer 12/26/2012 Elevated liver enzymes 04/30/2012 Carpal tunnel syndrome 03/29/2011 Bulging disc-C6-7 02/14/2011 Obesity 08/14/2009 Erectile dysfunction 10/06/2008 Cervicalgia 08/07/2006 Displacement of intervertebr al disc, site unspecified, without myelopathy 08/07/2006 Spinal stenosis in cervical region 08/07/2006 Pain in limb 08/07/2006 Lesion of ulnar nerve 08/07/2006 Cervical spondylosis with myelopathy 08/07/2006 Degeneration of cervical intervertebral disc Obstructive sleep apnea (adult) (pediatric) 01/2006 Contusion of chest wall 01/13/2006 SEBORRHEIC - KERATOSIS 02/25/2005 Esophageal reflux 07/15/2002 Overview: EGD 06/2013 reflux, no follow up EGD needed HTN (hypertension), benign Cervical spine disease Overview: s/p fusion Resolved Problems Problem Noted Date Diagnosed Date Resolved Date Diabetes mellitus 05/06/2013 12/15/2015 Impaired fasting glucose 12/25/2010 PHOTOKERATITIS-OU 08/15/2002 08/12/2013 Immunizations Name Administration Dates Next Due HepA-HepB (Twinrix) 08/12/2013 Hepatitis B (Adult) 02/28/2014,09/20/2013 Influenza, IIV3 (Age >=3 years) 08/12/2013 Influenza, IIV4 06/06/2016,07/29/2015,07/28/2014 Td (Age >=7 Years) 09/11/1998 Tdap 08/27/2010 Family History Medical History Relation Name Comments Genetic Other 1 uncontributory Cancer Other 2 Self-Skin Relation Name Status Comments Brother 1 Alive Brother 2 Alive Brother 3 Alive Brother 4 Alive Father Alive Mother Alive Other 1 Other 2 Social History Tobacco Use Types Packs/Day Years Used Date Smoking Tobacco: Former Cigarettes 0.5 10 1 10/15/1995 - 08/14/2006 Smokeless Tobacco: Never Tobacco Cessation:Counseling Given: Yes Alcohol Use Standard Drinks/Week Comments Yes 0 (1 standard drink = 0.6 oz pur e alcohol) occ Sex and Gender Information Value Date Recorded Sex Assigned at Not on file Gender Identity Not on file Sexual Orientation Not on file Obstetrics History Last Filed Vital Signs Vital Sign Reading Time Taken Comments Blood Pressure 129/87 01/04/2017 2:47 PM CDT Pulse 89 01/04/2017 2:47 PM CDT Temperature 36.8 ??C (98.3 ??F) 11/29/2016 2:48 PM CD T Respiratory Rate 18 03/12/2011 4:00 PM CDT Oxygen Saturation 96% 11/08/2016 2:22 PM NEGATIVE TURNER APPRENTICE Inhaled Oxygen Concentration - - Weight 137.9 kg (304 lb 1.6 oz) 01/04/2017 2:44 PM CDT Height 187.3 cm (6' 1.75) 09/21/2016 8:03 AM CS T Body Mass Index 39.31 09/21/2016 8:03 AM NEGATIVE TURNER APPRENTICE Plan of Treatment Health Maintenance Due Date Last Done Comments HIV for age 15-65 12/05/1983 Hepatitis C screening for age 18-79 1986 Colonoscopy through age 75 2013 BMI (ht and wt on same day) for age 18+ 09/21/2017 09/21/2016, 04/06/2016, 12/31/2015, Additional history exists Depression screening for age 12+ 09/21/2017 09/21/2016, 09/18/2015 Zoster (shingles) series for age 50+ (1 of 2) 2018 Tetanus booster 08/27/2020 08/27/2010, 09/11/1998 Lipids for age 45-75 03/23/2021 03/23/2016, 11/14/2014, 02/28/2014, Additional history exists COVID-19 vaccine series (2022-24 season) 2023 Influenza for age 50-64 05/12/2024 06/06/20 16, 07/29/2015, 07/28/2014, Additional history exists Tdap Completed 08/27/2010 Pneumococcal series for age 6-64 Aged Out No longer eligible based on patient's age to complete this topic Goals Goal Patient Goal Type Associated Problems Recent Progress Patient-Stated? Author BLOOD PRESSURE - MAINTAINS BP less than 140/90 Blood Pressure No Rika Ahn MD Medical Devices Implanted Type Area Model Builder Display Device Identifier Shelf Expiration Date Model / Serial / Lot Screw Self Tap 4.0x14mm Fixed Ang - [id number] n2011 Implanted:Qty : 2 on 03/11/2011 at [facility] Spine Implants N/A: Cervical Vertebrae Medtronic 876-714# / LD#[id number] / Screw Spinal [id number] Self Tap Titnm [place] - Sld#[id number] n2011 Implanted:Qty : 2 on 03/11/2011 at [facility] Spine Implants N/A: Cervical Vertebrae [employer] 876-814# / LD#[id number] / Block Jp [id number] - [id number] Implanted:Qty : 1 on 03/11/2011 at [facility] N/A: Cervical Vertebrae SPINAL GRAFT 07/09/[id number] / [id number] / [id number] Description:C6-7 Plate Cerv Ant 23mm [place] Vision 976-123 - Sld#[id number] n2011 Implanted:Qty : 1 on 03/11/2011 at [facility] N/A: Cervical Vertebrae [employer] 976-123# / LD#[id number] / Description:C6-7 Procedures Procedure Name Priority Date/Time Associated Diagnosis Comments LIPID PANEL W REFLEX MEASURED LDL Routine 03/23/2016 8:15 AM CDT Mixed hyperlipidemia from Last 3 Months or Most Recently Relevant to Health Maintenance Results * (ABNORMAL) LIPID PANEL W REFLEX MEASURED LDL (03/23/2016 8:15 AM CDT) [facility] CHOLESTEROL,TOTAL 127 100 - 199 mg/dL 03/23/2016 7:05 PM CDT [facility] TRIGLYCERIDES 270(H) <150 mg/dL 03/23/2016 7:05 PM CDT [facility] HDL CHOLESTEROL 32(L) >40 mg/dL 03/23/2016 7:05 PM CDT [facility] NON-HDL CHOLESTEROL 95 <145 mg/dl 03/23/2016 7:05 PM CDT [facility] CHOL/HDL RATIO 3.97 <4.50 03/23/2016 7:05 PM CDT [facility] LDL CHOLESTEROL 41 <=130 mg/dL 03/23/2016 7:05 PM CDT [facility] PATIENT STATUS FASTING 03/23/2016 7:05 PM CDT [facility] Blood BLOOD SPECIMEN / Unknown Venipuncture / Unknown 03/23/2016 8:15 AM CDT 03/23/2016 8:15 AM CDT Sarah Nieves DO CHEMISTRY [facility] [address] [place] [address], from Last 3 Months or Most Recently Relevant to Health Maintenance Advance Directives * Full Code (Latest Code Status on File) Date Activated Date Inactivated Comments 03/11/2011 3:21 PM 03/12/2011 7:48 PM * Full Code Date Activated Date Inactivated Comments 03/11/2011 1:56 AM 03/11/2011 3:21 PM * Full Code Date Activated Date Inactivated Comments 08/13/2009 8:18 PM 08/14/2009 5:28 PM * Full Code Date Activated Date Inactivated Comments 08/13/2009 11:02 AM 08/13/2009 8:18 PM
--- OUTSIDE RECORDS SUMMARY | 2024-04-29 14:00 | XMS_ITS | Encounter Summary ---
Author Organization [facility] Address [address] [place] [address] Care Team Providers Care Maori Liaison Adviser Name Role Phone Elsewhere, Pcp Primary Care Provider Unavailabl e Reason for Referral * Outpatient (Routine) - Authorized Specialty Diagnoses / Procedures Referred By Rose Marie mcintyre Referred To Contact Pain Medicine Diagnoses Stenosis Spinal Cervical Polyneuropathy Chronic Pain Syndrome Arminda Patel, PXuAXu-CXu [address] [place] [address] [facility] Referral ID Status Reason Start Date Expiration Date V isits Requested Visits Authorized [id number] Authorized 04/12/2024 10/12/2025 1 1 Encounter Details Date Type Department Care Team (Late st Contact Info) Description 04/12/2024 [facility] [address] [place] [address] Arminda Patel P.A.-Robb [address] [place] [phone] Stenosis Spinal Cervical (Primary Dx); Polyneuropathy; Chronic Pain Syndrome Social History Tobacco Use Types Packs/Day Years Used Date Smoking Tobacco: Former Cigarettes 0.3 10.2 0 09/12/1989 - 12/05/1999 Smokeless Tobacco: Former Chew Quit: 12/28/1997 Alcohol Use Standard Drinks/Week Comments Not Currently 0 (1 standard drink = 0.6 oz pur e alcohol) Humiliation, Afraid, Rape, and Kick questionnair e Answer Date Recorded Within the last year, have y ou been afraid of your partner or ex-partner? No 02/09/2023 Within the last year, have y ou been humiliated or emotionally abused in other ways by your partner or ex-partner? No Within the last year, have y ou been kicked, hit, slapped, or otherwise physically hurt by your partner or ex-partner? No 02/09/2023 Within the last year, have y ou been raped or forced to have any kind of sexual activity by your partner or ex-partner? No 02/09/2023 Social Connection and Isolat ion Panel [NHANES] Answer Date Recorded In a typical week, how many times do you talk on the phone with family, friends, or neighbors? More than three times a week 01/13/2020 How often do you get togethe r with friends or relatives? Twice a week 01/13/2020 How often do you attend chur ch or jain services? Patient declined 01/13/2020 Do you belong to any clubs o r organizations such as orthodox groups, unions, fraternal or athletic groups, or school groups? No 01/13/2020 How often do you attend meet ings of the clubs or organizations you belong to? Never 01/13/2020 Are you , , di vorced, , never , or living with a partner? 01/13/2020 AUDIT-C Answer Date Recorded Frequency of Alcohol Consumption Not on file 04/23/2020 Q2: How many drinks containi ng alcohol do you have on a typical day when you are drinking? 1 or 2 04/23/2020 Frequency of Binge Drinking Not on file 04/11 Overall Financial Resource Strain (CARDIA) Answe r Date Recorded How hard is it for you to pa y for the very basics like food, housing, medical care, and heating? Not very hard 02/09/2023 PHQ-2 Answer Date Recorded PHQ-2 Score 3 09/07/2023 [facility] - Occupational Stress Questionnaire Answer Date Recorded Do you feel stress - tense, restless, nervous, or anxious, or unable to sleep at night because your mind is troubled all the time - these days? Rather much 01/23/2020 Exercise Vital Sign Answer Date Recorde d On average, how many days pe r week do you engage in moderate to strenuous exercise (like a brisk walk)? 4 days 02/09/2023 On average, how many minutes do you engage in exercise at this level? 40 min 02/09/2023 Hunger Vital Sign Answer Date Recorded Within the past 12 months, y ou worried that your food would run out before you got the money to buy more. Never true 02/10/20 Within the past 12 months, t he food you bought just didn't last and you didn't have money to get more. Never true 02/09/2023 PRAPARE - Transportation Answer Date Re corded In the past 12 months, has l ack of transportation kept you from medical appointments or from getting medications? No 09/2022 In the past 12 months, has l ack of transportation kept you from meetings, work, or from getting things needed for daily living? No 02/09/2023 Depression Answer Date Recor ded PHQ-9 Total Score (max 27) 11 09/07 Nutrition Answer Date Recorded Nutrition: EVOO Fat Source Unknown 02/09 On average, how many serving s of fruits and vegetables do you eat per day (serving size is equal to 1 cup or approximately the size of a tennis ball)? 0-2 02/09/2023 Dental Answer Date Recorded Dental: Regular Dentist Yes 02/10/20 Employment Answer Date Recorded Employment status Permanently disabled 3 Housing Stability Answer Date Recorded What is your living situation today? [facility] place to live 02/09/2023 Education Answer Date Recorded What is the highest level of school you have completed or the highest degree you have received? Associate degree: occupational, technical, or vocational program 01/13/2020 Sex and Gender Information Value Date Recorded Sex Assigned at Male 02/09/2023 1:14 PM CDT Gender Identity Male 03/24/2020 11:00 AM CDT Sexual Orientation Straight 03/24/2020 11 :00 AM CDT documented as of this encounter Plan of Treatment Scheduled Referrals Name Type Priority Associated Diagnoses Order Schedule [facility] Referral Outpatient Referral Routine Stenosis Spinal Cervical Polyneuropathy Chronic Pain Syndrome Expected: 04/12/2024 (Approximate), Expires: 07/13/2025 documented as of this encounter Visit Diagnoses Diagnosis Stenosis Spinal Cervical- Primary Polyneuropathy Chronic Pain Syndrome documented in this encounter Additional Health Concerns Assessment Noted Time PHQ-9 Depression Total Score: 11 09/07/2 023 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
--- OUTSIDE RECORDS SUMMARY | 2024-04-29 14:00 | XMS_ITS | Clinical Summary ---
Author Organization [facility] Address [address] [place] [id number] Phone [email or web address] Care Team Providers Care Biomedical Analytical Scientist Name Role Phone Unavailable Primary Care Provider Unavailabl e Medications Medication Sig Dispensed Refills Start Date End Date Status tadalafil (Cialis) 20 MG tabletIndications:E rectile dysfunction, unspecified erectile dysfunction type Take 1 tablet (20 mg total) by mouth if needed for erectile dysfunction (1-2 hours before intercourse. No more than 1 dose in 48 hours). 18 tablet 3 01/03/2023 Active Encounters Date Type Department Care Team Description 04/10/2024 Claims Summary [facility] Office [address] [place] [address] Provider, Claims Summary MD Mal from Last 3 Months Social History Tobacco Use Types Packs/Day Years Used Date Smoking Tobacco: Never Assessed Sex and Gender Information Value Date Recorded Sex Assigned at Not on file Gender Identity Not on file Sexual Orientation Not on file Plan of Treatment Health Maintenance Due Date Last Done Comments Dental Cleaning/Exam 1968 HIV Screening 1968 Hepatitis C Screening 1968 Annual Preventive Exam 1986 Hep B Infection Screening - Surface Antigen 1986 Colorectal Cancer Screening 1998 Zoster Immunization (1 of 2) 2018 Pneumococcal: Ped (0 to 5 Yrs) and At-Risk Member (6 to 64 Yrs) (2 of 2 - PCV) 07/06/2019 07/06/2018 Covid-19 Immunization (1 - 2022- season) 2023 Influenza Immunization (#1) 2024 Tetanus (Tdap or Td) Immunization 06/15/2027 06/15/2017, 08/27/2010, 09/11/1998 Hepatitis A Immunization Aged Out 08/12/2013 No longer eligible based on patient's age to complete this topic Hepatitis B Immunization Completed 014, 09/20/2013, 08/12/2013 HIB Immunization Aged Out No longer e ligible based on patient's age to complete this topic HPV Immunization Aged Out No longer e ligible based on patient's age to complete this topic Polio Immunization Aged Out No longer eligible based on patient's age to complete this topic
--- OUTSIDE RECORDS SUMMARY | 2024-04-29 14:00 | XMS_ITS | Clinical Summary ---
Author Organization [facility] Address [address] [place] [address] Care Team Providers Care Er Rn Name Role Phone Elsewhere, Pcp Primary Care Provider Unavailabl e Source Comments Patient records contain information from all sites at [facility]. For routine questions regarding patient records, call [phone] during business hours, M-F 8:00 AM - 5:00 PM Central Time. Record requests for emergency care only can be directed to [phone] at any time.[facility] Allergies Active Allergy Reactions Criticality Noted Date Comments Celecoxib Rash Low 09/30/2015 Duloxetine Other (see comments) 02/10/2023 Memory concerns Gabapentin Other (see comments) High 02/15/2021 Other reaction(s): depression-brain fog with high dose, tolerates lower doses House Dust Mite Other (see comments) 01/10/2020 Lisinopril Cough 12/15/2015 Rofecoxib Rash Low 01/05/2006 vioxx Medications Medication Sig Dispensed Refills Start Date End Date Status tiZANidine (ZANAFLEX) 2 mg tablet Take 2 mg by mouth every 8 (eight) hours as needed. Side effects, not using. 03/09/2017 Active pantoprazole (PROTONIX) 20 mg EC tablet Take 20 mg by mouth every morning before breakfast. 12/28/2016 Active metFORMIN (GLUCOPHAGE) 1,000 mg tablet Take 1,000 mg by mouth daily. 02/01/2017 Active fluticasone propionate (FLONASE) 50 mcg/actuation nasal spray Administer into affected nostril(s) as needed. 05/05/2017 Active dulaglutide (Trulicity) 1.5 mg/0.5 mL pen injector injection Inject 1.5 mg under the skin every 7 (seven) days. 03/09/2017 Active amLODIPine (NORVASC) 10 mg tablet Take 10 mg by mouth daily. 06/24/[address] Active [address] tablet Take 81 mg by mouth daily. 09/21/2016 Active atorvastatin (LIPITOR) 80 mg tablet Take 80 mg by mouth daily. 02/01/2017 Active budesonide (PULMICORT) 1 mg/2 mL nebulizer solution Inhale 1 mg as needed. 01/04/2017 Active cetirizine (ZyrTEC) 10 mg tablet Take 10 mg by mouth daily. Active albuterol 0.63 mg/3 mL nebulizer solution Take 0.63 mg by nebulization every 6 (six) hours as needed for wheezing. Active OneTouch Ultra Blue Test Strip strips 1 test daily. for testing 06/25/2020 Active oxyCODONE (ROXICODONE) 5 mg immediate release tablet Take 1 tablet by mouth 3 (three) times a day. 08/27/2020 Active albuterol (ACCUNEB) 2.5 mg /3 mL nebulizer solution Inhale 1 mL by nebulization as needed. 07/23/2020 Active fluticasone-umeclidi nium-vilanterol (Trelegy Ellipta) 100-62.5-25 mcg/actuation inhaler Inhale 1 puff once daily. 28 each 11 11/02/2020 Active baclofen (LIORESAL) 10 mg tablet TAKE 1-2 TABLETS BY MOUTH 3 TIMES DAILY NEEDED FOR MUSCLE SPASMS. 01/11/2023 Active carvediloL (COREG) 12.5 mg tablet 2 (two) times a day. 12/28/2022 Active hydrOXYzine (ATARAX) 25 mg tablet daily. 02/16/2021 Active ibuprofen (MOTRIN) 800 mg tablet TAKE 1 TABLET BY MOUTH 2 TIMES DAILY NEEDED WITH FOOD FOR PAIN. 01/11/2023 Active naloxone (Narcan) 4 mg/actuation nasal spray 02/16/2021 Active olmesartan (BENICAR) 20 mg tablet 01/17/2023 Active senna 8.6 mg tablet Take 17.2 mg by mouth at bedtime. 01/23/2023 Active tadalafiL (CIALIS, ADCIRCA) 20 mg tablet 01/04/2023 Active topiramate (TOPAMAX) 25 mg tablet Take 25 mg by mouth daily. 02/16/2021 Active tamsulosin (FLOMAX) 0.4 mg 24 hr capsule Take 1 capsule (0.4 mg total) by mouth daily. 90 capsule 3 02/16/2023 Active tadalafiL (Cialis) 5 mg tablet Take 1 tablet (5 mg total) by mouth as needed for erectile dysfunction. May take up to 15 mg. Do not exceed more than 20mg per day 90 tablet 3 03/06/2023 Active diclofenac sodium (VOLTAREN) 1 % gel Apply 4 g topically. 12/05/2020 Active ibuprofen (MOTRIN) 600 mg tablet Take 600 mg by mouth. 07/18/2023 Active acetaminophen (TYLENOL) 325 mg tablet Take 650 mg by mouth. 07/18/2023 Active buPROPion XL (WELLBUTRIN XL) 150 mg 24 hr tablet Take 150 mg by mouth. Active gabapentin (NEURONTIN) 300 mg capsule 07/20/2023 Active ondansetron ODT (ZOFRAN-ODT) 4 mg disintegrating tablet Dissolve 4 mg in the mouth. 04/10/2020 Active sennosides-docusate sodium (SENOKOT-S) 8.6-50 mg per tablet Take 1-2 tablets by mouth. 07/18/2023 Active traZODone (DESYREL) 50 mg tablet TAKE 1-2 TABS BY MOUTH AT BEDTIME NEEDED FOR SLEEP Active amoxicillin (AMOXIL) 500 mg tablet TAKE 4 TABLETS BY MOUTH 1 HOUR BEFORE DENTAL APPOINTMENT 07/31/2023 Active doxycycline hyclate (VIBRA-TABS) 100 mg tablet TAKE 1 TAB BY MOUTH 2XDAILY X10 DAYS. BEGIN TAKING AT ONSET OF EXACERBATION PER ACTION PLAN 20 tablet 10/26/2023 Active ipratropium-albutero L (DUONEB) 0.5-2.5 mg/3 mL nebulizer solutionIndications: Chronic Cough INHALE 3 ML BY NEBULIZATION 4 (FOUR) TIMES A DAY NEEDED FOR SHORTNESS OF BREATH. 360 mL 11 10/26/2023 Active methylPREDNISolone (MEDROL) 32 mg tabletIndications:Ch ronic Cough Take 1 tablet (32 mg total) by mouth daily for 10 days. Begin taking at onset of exacerbation per your action plan. 10 tablet 11/03/2023 Active albuterol 90 mcg/actuation inhalerIndications:C hronic Cough INHALE 2 PUFFS EVERY 4 HOURS NEEDED FOR WHEEZING 18 g 11 03/13/2024 Active Active Problems Problem Noted Date Diagnosed Date Chronic Pain Syndrome 08/08/2023 Abnormal Stress Test 08/01/2023 Atherosclerotic Heart Diseas e Of [place] Coronary Artery Without Angina Pectoris 08/01/2023 Anemia 08/01/2023 Diabetes Mellitus Type 2 09/21/2016 Chronic Obstructive Pulmonary Disease 12/15/2015 Hyperlipidemia 11/14/2014 Gout 02/28/2014 Apnea Sleep Obstructive 01/13/2006 Overview (08/08/2023): underwent an BASIL surgery in 2001 Gastroesophageal Reflux Disease NOS 07/15/2002 Overview (08/08/2023): EGD 06/2013 reflux, no follow up EGD needed Pain Neck Overview (01/16/2020): history 3x neck surgeries Pain Shoulder Right Overview (01/16/2020): history shoulder replacement Hypertension Essential Primary Encounters Date Type Department Care Team Description 04/12/2024 [facility] [address] [place] [address] Arminda Patel, P.A.-C. Stenosis Spinal Cervical (Primary Dx); Polyneuropathy; Chronic Pain Syndrome 03/13/2024 Refill Division of Pulmonary Medicine in [place], [place] [address] [place] [address] Maximus Meeks M.D. Med Refill from Last 3 Months Immunizations Name Administration Dates Next Due HepA / HepB 08/12/2013 HepB Adult 02/28/2014,09/20/2013 Influenza TIV (IM) 08/12/2013 Influenza, Seasonal, Injectable 08/12/2013 PCV20 09/07/2023 PPSV23 07/06/2018 Tdap 06/15/2017,08/27/2010 influenza vaccine QV(FLUBLOK ) (18 years or older) (PF) 06/22/2022,06/28/2019 influenza vaccine quad (FLUZONE/FLUARIX) (6 months and older)(PF) 07/06/2023,06/23/2021,07/06/2018, 017,06/06/2016,07/29/2015,07/28/2014 Family History Medical History Relation Name Comments Arthritis Father alfie Coronary artery disease Father alfie Dementia Father alfie Diabetes Father alfie Hyperlipidemia Father alfie Hypertension Father alfie Prostate cancer Father alfie Stroke Father alfie Thyroid cancer Father alfie Thyroid disease Father alfie Transient ischemic attack Father alfie Relation Name Status Comments Father alfie Social History Tobacco Use Types Packs/Day Years Used Date Smoking Tobacco: Former Cigarettes 0.3 10.2 0 09/12/1989 - 12/05/1999 Smokeless Tobacco: Former Chew Quit: 12/28/1997 Tobacco Cessation:Counseling Given: Not Answered Alcohol Use Standard Drinks/Week Comments Not Currently [...] week 01/13/2020 How often do you attend [facility] or judaism services? Patient declined 01/13/2020 Do you belong to any clubs o r organizations such as roman catholic groups, unions, fraternal or athletic groups, or [...] Answer Date Recorded PHQ-2 Score 3 09/07/2023 [facility] Questionnaire Answer Date Recorded [...] money to buy more. Never true 02/10/20 23 Within the past 12 months, t he [...] Answer Date Recorded Employment status Permanently disabled Housing Stability Answer Date Recorded What is your living situation today? I have a [facility] place to live 02/09/2023 Education Answer Date Recorded What is the highest level of school you have completed or the highest degree you have received? Associate degree: occupational, technical, or vocational program 01/13/2020 Sex and Gender Information Value Date Recorded Sex Assigned at Male 02/09/2023 1:14 PM CDT Gender Identity Male 03/24/2020 11:00 AM CDT Sexual Orientation Straight 03/24/2020 11 :00 AM CDT Last Filed Vital Signs Vital Sign Reading Time Taken Comments Blood Pressure 144/82 09/07/2023 5:20 PM COMMERCIAL INTERNSHIP Pulse 77 09/07/2023 5:20 PM [employer] Temperature 36.5 ??C (97.7 ??F) 09/07/2023 5:15 PM CS T Respiratory Rate 22 08/16/2023 3:05 PM [employer] Oxygen Saturation 98% 09/07/2023 5:15 PM [employer] INTER[employer] Inhaled Oxygen Concentration - - Weight 110 kg (243 lb 6.2 oz) 09/07/2023 5:15 PM [employer] Height 188 cm (6' 2.02) 08/08/2023 11:17 AM COMM[employer]CIAL INTERNS[employer]IP Body Mass Index 31.24 08/08/2023 11:17 AM COMM[employer]CIAL INTERNS[employer]IP Plan of Treatment Health Maintenance Due Date Last Done Comments CT Colonography 1968 Cologuard 1968 Colonoscopy 1968 Colorectal Cancer Surveillance 1968 Diabetic Office Visit with F oot Exam 1968 Dilated Eye Exam 1968 HIV Screening 1968 Hepatitis C Screening 1968 Lipid (Cholesterol) Screening 1968 Urine Albumin 1968 Hepatitis A Vaccines (2 of 3 - Hep A risk 3-dose series) 09/09/2013 08/12/2013 Zoster Vaccines (1 of 2) 2018 Potassium Level 09/21/2021 09/21/2020, 04/11, 01/29/2020 Sodium Level 09/21/2021 09/21/2020, 04/11, 01/29/2020, Additional history exists COVID-19 Vaccine (2 4 season) 2023 10/25/2021, 12/19/2020, 11/28/2020 Depression Screening (Annual PHQ-2) 09/11/2023 Office Visit for Blood Press ure Check / Re-check 12/07/2023 09/07/2023 Hemoglobin A1C 02/05/2024 08/07/2023 Influenza Vaccine (#1) 2024 , 06/22/2022, 06/23/2021, Additional history exists Creatinine Level (Kidney Fun ction Test) 08/07/2024 08/07/2023, 09/21/2020, 04/23/2020, Additional history exists DTaP,Tdap,and Td Vaccines (3 - Td or Tdap) 06/15/2027 06/15/2017, 08/27/2010 Hepatitis B Vaccines Completed 02/28/2014, 09/20/2013, 08/12/2013 Pneumococcal vaccine (0-64 years) Completed 023, 07/06/2018 Medical Devices Implanted Type Area Drywall Foreman Device Identifier Shelf Expiration Date Model / Serial / Lot Hardware E.G. Pins/Screws/Jonathan s-09/11/2008 Implanted:09/11 (Quantity not on file) Hardware e.g. pins/screws /rods Neck Description:Titanium plate i n neck for fusion, done @ [facility] Shoulder Implant-09/23/19 Implanted:09/23 (Quantity not on file) Shoulder Implant Right: Shoulder Description:Right shoulder r eplacement (Done @ [facility]) Procedures Procedure Name Priority Date/Time Associated Diagnosis Comments HEMOGLOBIN A1C, B Routine 08/07/2023 10: 42 AM COMM[employer]CIAL INTERNSHIP Preanesthetic Medical Exam Diabetes Mellitus Type 2 Without Complication (HCC) CREATININE WITH EGFR, S/P Routine 08/07/2023 10:42 AM [employer] Lesion Bladder Colic Renal BASIC METABOLIC PANEL, S/P Routine 09/21/2020 9:46 AM [employer] INTER[employer]IP Dyspnea On Exertion from Last 3 Months or Most Recently Relevant to Health Maintenance Results * Hemoglobin A1c (08/07/2023 10:42 AM [employer]) Hemoglobin A1c, B 5.4 4.0 - 5.6 % 08/07/2023 1:33 PM [employer] DTL Blood (Blood, Venous) 08/07/2023 10:42 AM [employer] INTER[employer] 08/07/2023 11:04 AM [employer] Layla Espinal APRN, C.N.P. LAB BLOOD ADD-ON Performing Organization Address City/[facility]/ZIP Co de Phone Number [facility] [address] [place], [place] [id number] [place] [address] [address] * Creatinine with Estimated GFR (08/07/2023 10:42 AM COMM[employer] INTERNS[employer]) [facility] Creatinine 1.16 0.74 - 1.35 mg/dL 08/07/2023 11:32 AM [employer] DTL Estimated GFR (eGFR) 75 >=60 mL/min/BSA 08/07/2023 11:32 AM [employer] DTL Comment: Estimated GFR calculated using the 2020 CKD_EPI creatinine equation. Blood (Blood, Venous) 08/07/2023 10:42 AM [employer] 08/07/2023 11:16 AM [employer] INTER[employer] Derrell STEPHEN, P.A.-C. LAB BLOOD ADD-ON [facility] [address] [place] [address], [facility] [address] [place] [address] * (ABNORMAL) Basic Metabolic Panel (09/21/2020 9:46 AM [employer]) [facility] Potassium, S 3.9 3.6 - 5.2 mmol/L 09/21/2020 10:58 AM [employer] DTL Sodium, S 138 135 - 145 mmol/L 09/21/2020 10:58 AM [employer] DTL Chloride, S 97(L) 98 - 107 mmol/L 09/21/2020 10:58 AM [employer] DTL Bicarbonate, S 29 22 - 29 mmol/L 09/21/2020 10:58 AM [employer] DTL Anion Gap 12 7 - 15 09/21/2020 10:58 AM [employer] DTL BUN (Blood Urea Nitrogen), S 25(H) 8 - 24 mg/dL 09/21/2020 10:58 AM [employer] DTL Creatinine 1.36(H) 0.74 - 1.35 mg/dL 09/21/2020 10:58 AM [employer] DTL eGFR-Non Black/ 60 >=60 mL/min/BSA 09/21/2020 10:58 AM [employer] DTL Comment: ----ADDITIONAL INFORMATION---- Estimated GFR calculated using the 2009 CKD_EPI creatinine equation. eGFR-Black/Afri can Russian 69 >=60 mL/min/BSA 09/21/2020 10:58 AM [employer] DTL Comment: ----ADDITIONAL INFORMATION---- Estimated GFR calculated using the 2009 CKD_EPI creatinine equation. Calcium, Total, S 9.0 8.6 - 10.0 mg/dL 09/21/2020 10:58 AM [employer] DTL Glucose, S 197(H) 70 - 140 mg/dL 09/21/2020 10:58 AM [employer] DTL Blood (Blood, Venous) 09/21/2020 9:46 AM [employer] 09/21/2020 10:10 AM [employer] Maximus Meeks M.D. LAB BLOOD ADD-ON [facility] [address] [place] [address], [place] DTL [facility] [address] [place] [address] from Last 3 Months or Most Recently Relevant to Health Maintenance Care Teams Er Rn Relationship Specialty Start Date End Date Elsewhere, Pcp PCP - General Internal Medicine 08/16/23
--- OUTSIDE RECORDS SUMMARY | 2024-04-29 14:00 | XMS_ITS | Referral Summary ---
Author Organization [facility] Address [address] [place] [address] Care Team Providers Care Supervisor Heavy Equipment Name Role Phone Elsewhere, Pcp Primary Care Provider Unavailabl e Source Comments Patient records contain information from all sites at [facility]. For routine questions regarding patient records, call [phone] during business hours, M-F 8:00 AM - 5:00 PM Central Time. Record requests for emergency care only can be directed to [phone] at any time.[facility] Encounters Date Type Department Care Team Description 04/12/2024 [facility] AND [facility] [address] [place] [address] Arminda Patel, RyderAMichealC. Stenosis Spinal Cervical (Primary Dx); Polyneuropathy; Chronic Pain Syndrome 03/13/2024 Refill Division of Pulmonary Medicine in [place], [place] [address] [place] [address] Maximus Meeks M.D. Med Refill from Last 3 Months Allergies Active Allergy Reactions Criticality Noted Date [...] Inhale 1 puff once daily. 28 each 11/02/2020 Active baclofen (LIORESAL) 10 mg tablet [...] Test 08/01/2023 Atherosclerotic Heart Diseas e Of [place] Coronary Artery Without Angina Pectoris 08/01/2023 Anemia [...] (01/16/2020): history shoulder replacement Hypertension Essential Primary Immunizations Name Administration Dates Next Due HepA / HepB 08/12/2013 HepB Adult 02/28/2014,09/20/2013 Influenza TIV (IM) 08/12/2013 Influenza, Seasonal, Injectable 08/12/2013 PCV20 09/07/2023 PPSV23 07/06/2018 Tdap 06/15/2017,08/27/2010 influenza vaccine QV(FLUBLOK ) (18 years or older) (PF) 06/22/2022,06/28/2019 influenza vaccine quad (FLUZONE/FLUARIX) (6 months and older)(PF) 07/06/2023,06/23/2021,07/06/2018, 017,06/06/2016,07/29/2015,07/28/2014 Social History Tobacco Use Types Packs/Day Years [...] 01/13/2020 How often do you attend chur or catholic services? Patient declined 01/13/2020 Do you belong to any clubs o r organizations such as sabianist groups, unions, fraternal or athletic groups, or [...] Answer Date Recorded PHQ-2 Score 3 09/07/2023 [facility] [place] [facility] Occupat ional Health - Occupational Stress [...] Answer Date Recorded Dental: Regular Dentist Yes 06/01/20 23 Employment Answer Date Recorded Employment status Permanently [...] Comments Blood Pressure 144/82 09/07/2023 5:20 PM ANIMAL TECHNICIAN Pulse 77 09/07/2023 5:20 PM ANIMAL TECHNICIAN Temperature 36.5 ??C (97.7 ??F) 09/07/2023 5:15 PM CS T Respiratory Rate 22 08/16/2023 3:05 PM ANIMAL TECHNICIAN Oxygen Saturation 98% 09/07/2023 5:15 PM ANIMAL TECHNICIAN Inhaled Oxygen Concentration - - Weight 110 kg (243 lb 6.2 oz) 09/07/2023 5:15 PM ANIMAL TECHNICIAN Height 188 cm (6' 2.02) 08/08/2023 11:17 AM ANIMAL TECHNICIAN Body Mass Index 31.24 08/08/2023 11:17 AM ANIMAL TECHNICIAN Plan of Treatment Not on file Medical Devices Implanted Type Area Sterile Tech Device Identifier Shelf Expiration Date Model / Serial / Lot Hardware E.G. Pins/Screws/Jonathan s-09/11/2008 Implanted:09/11 (Quantity not on file) Hardware e.g. pins/screws /rods Neck Description:Titanium plate i n neck for fusion, done @ [facility] Shoulder Implant-09/23/19 Implanted:09/23 (Quantity not on file) Shoulder Implant Right: Shoulder Description:Right shoulder r eplacement (Done @ [facility]) Procedures Procedure Name Priority Date/Time Associated Diagnosis Comments HEMOGLOBIN A1C, B Routine 08/07/2023 10: 42 AM ANIMAL TECHNICIAN Preanesthetic Medical Exam Diabetes Mellitus Type 2 Without Complication (HCC) CREATININE WITH EGFR, S/P Routine 08/07/2023 10:42 AM ANIMAL TECHNICIAN Lesion Bladder Colic Renal BASIC METABOLIC PANEL, S/P Routine 09/21/2020 9:46 AM ANIMAL TECHNICIAN Dyspnea On Exertion from Last 3 Months or Most Recently Relevant to Health Maintenance Results * Hemoglobin A1c (08/07/2023 10:42 AM ANIMAL TECHNICIAN) Hemoglobin A1c, B 5.4 4.0 - 5.6 % 08/07/2023 1:33 PM ANIMAL TECHNICIAN DTL Blood (Blood, Venous) 08/07/2023 10:42 AM ANIMAL TECHNICIAN 08/07/2023 11:04 AM ANIMAL TECHNICIAN Robb Lopez APRNNXuP. LAB BLOOD ADD-ON [address] [place] [address] * Creatinine with Estimated GFR (08/07/2023 10:42 AM ANIMAL TECHNICIAN) Pathologist [facility] Creatinine 1.16 0.74 - 1.35 mg/dL 08/07/2023 11:32 AM ANIMAL TECHNICIAN DTL Estimated GFR (eGFR) 75 >=60 mL/min/BSA 08/07/2023 11:32 AM ANIMAL TECHNICIAN DTL Comment: Estimated GFR calculated using the 2020 CKD_EPI creatinine equation. Blood (Blood, Venous) 08/07/2023 10:42 AM ANIMAL TECHNICIAN 08/07/2023 11:16 AM ANIMAL TECHNICIAN Derrell STEPHEN, P.A.-C. LAB BLOOD ADD-ON [address] [place] [address] * (ABNORMAL) Basic Metabolic Panel (09/21/2020 9:46 AM ANIMAL TECHNICIAN) Potassium, S 3.9 3.6 - 5.2 mmol/L 09/21/2020 10:58 AM ANIMAL TECHNICIAN DTL Sodium, S 138 135 - 145 mmol/L 09/21/2020 10:58 AM ANIMAL TECHNICIAN DTL Chloride, S 97(L) 98 - 107 mmol/L 09/21/2020 10:58 AM ANIMAL TECHNICIAN DTL Bicarbonate, S 29 22 - 29 mmol/L 09/21/2020 10:58 AM ANIMAL TECHNICIAN DTL Anion Gap 12 7 - 15 09/21/2020 10:58 AM ANIMAL TECHNICIAN DTL BUN (Blood Urea Nitrogen), S 25(H) 8 - 24 mg/dL 09/21/2020 10:58 AM ANIMAL TECHNICIAN DTL Creatinine 1.36(H) 0.74 - 1.35 mg/dL 09/21/2020 10:58 AM ANIMAL TECHNICIAN DTL eGFR-Non Black/ 60 >=60 mL/min/BSA 09/21/2020 10:58 AM ANIMAL TECHNICIAN DTL Comment: ----ADDITIONAL INFORMATION---- Estimated GFR calculated using the 2009 CKD_EPI creatinine equation. eGFR-Black/Afri can Czech 69 >=60 mL/min/BSA 09/21/2020 10:58 AM ANIMAL TECHNICIAN DTL Comment: ----ADDITIONAL INFORMATION---- Estimated GFR calculated using the 2009 CKD_EPI creatinine equation. Calcium, Total, S 9.0 8.6 - 10.0 mg/dL 09/21/2020 10:58 AM ANIMAL TECHNICIAN DTL Glucose, S 197(H) 70 - 140 mg/dL 09/21/2020 10:58 AM ANIMAL TECHNICIAN DTL Blood (Blood, Venous) 09/21/2020 9:46 AM ANIMAL TECHNICIAN 09/21/2020 10:10 AM ANIMAL TECHNICIAN Maximus Meeks M.D. LAB BLOOD ADD-ON [facility] [address] [place] [address], [facility] DTL [facility] [address] [place] [address] from Last 3 Months or Most Recently Relevant to Health Maintenance Care Teams Supervisor Heavy Equipment Relationship Specialty Start Date End Date Elsewhere, Pcp PCP - General Internal Medicine 08/16/23
--- OUTSIDE RECORDS SUMMARY | 2024-04-29 14:00 | XMS_ITS ---
Author Organization [facility] Address [address] [place] [address] Care Team Providers Care Auxiliary Equipment Tender Name Role Phone Unavailable Unavailable Unavailable Surgery Details Not on file Complications Check Surgery Details section. Procedure Estimated Blood Loss Check Surgery Details section. Procedure Findings Check Surgery Details section. Procedure Specimens Taken Check Surgery Details section.
--- OUTSIDE RECORDS SUMMARY | 2024-04-29 14:00 | XMS_ITS | Encounter Summary ---
Author Organization [facility] Address [address] [place] [id number] Phone [email or web address] Care Team Providers Care Machine Rigger Name Role Phone Unavailable Primary Care Provider Unavailabl e Encounter Details Date Type Department Care Team (Late st Contact Info) Description 04/10/2024 Claims Summary [facility] [address] [place] [address] Provider, Claims Summary External, [address] [place] [address] Social History Tobacco Use Types Packs/Day Years Used Date Smoking Tobacco: Never Assessed Sex and Gender Information Value Date Recorded Sex Assigned at Not on file Gender Identity Not on file Sexual Orientation Not on file documented as of this encounter Plan of Treatment Not on file documented as of this encounter Visit Diagnoses Not on filedocumented in this encounter
--- OUTSIDE RECORDS SUMMARY | 2024-04-29 14:00 | XMS_ITS | Encounter Summary ---
Author Organization [facility] Address [address] [place] [address] Care Team Providers Care Back Tender Insulation Board Name Role Phone Elsewhere, Pcp Primary Care Provider Unavailabl e Reason for Visit * Reason Comments Med Refill Encounter Details Date Type Department Care Team (Late st Contact Info) Description 03/13/2024 Refill Division of Pulmonary Medicine in [place], [place] [address] [place] [address] Maximus Meeks M.D. [address] [place] [address] Med Refill Social History Tobacco Use Types Packs/Day Years [...] week 01/13/2020 How often do you attend [facility] or yazidi services? Patient declined 01/13/2020 Do you belong to any clubs o r organizations such as zoroastrian groups, unions, fraternal or athletic groups, or [...] Answer Date Recorded PHQ-2 Score 3 09/07/2023 [facility] Answer Date Recorded [...] your living situation today? I have a [facility] place to live 02/09/2023 Education Answer Date [...] as of this encounter Visit Diagnoses Diagnosis Chronic Cough documented in this encounter Additional Health Concerns Assessment Noted Time PHQ-9 Depression Total Score: 11 023 5:10 PM COOK PIE documented as of this encounter Care Teams Back Tender Insulation Board Relationship Specialty Start Date End Date Elsewhere, Pcp PCP - General Internal Medicine 08/16/23 documented as of this encounter
--- NOTE | 2024-04-29 14:30 | CRLHL7_ITS ---
For Patients: As a result of the Century Cures Act, medical imaging exams and procedure reports are released immediately into your electronic medical record. You may view this report before your referring provider. If you have questions, please contact your health care provider. INDICATION: Spinal stenosis. TECHNIQUE: Cervical spine scanned sagittal and axial T1, sagittal axial T2 and sagittal STIR images. FINDINGS: Are postoperative changes of a mature anterior cervical fusion at the cervical C6-7 level with associated metallic artifact from anchoring screws and anterior plate. No evidence of postop complication. At C5-6 level there is a shallow broad-based posterior disc protrusion that extends more to the left of midline this deforms the ventral thecal sac causing slight deflection of the anterior margin of these cervical cord and mild central canal stenosis. Mild left foraminal narrowing. At C3-4 there is some uncinate process hypertrophy bilaterally resulting in mild bony foraminal narrowing. No central stenosis. No disc herniation or stenosis at the other cervical levels. Cervical spinal cord appears intrinsically normal. IMPRESSION: 1. Mature anterior cervical fusion at C6-7 and mature left laminotomy without residual stenosis. 2. At C5-6, adjacent segment disc degeneration with moderate broad-based and left side disc protrusion causes mild ventral cord deformity and mild left foraminal narrowing. 3. Normal cervical cord signal. Dictated by Eric Marsh MD @ 04/30/2024 11:40:19 AM (Electronically Signed)
--- NOTE | 2024-04-29 15:15 | CRLHL7_ITS ---
For Patients: As a result of the Century Cures Act, medical imaging exams and procedure reports are released immediately into your electronic medical record. You may view this report before your referring provider. If you have questions, please contact your health care provider. INDICATION: Low back pain. TECHNIQUE: Sagittal and axial T1, sagittal and axial T2 and sagittal STIR images were obtained. COMPARISON: Abdominal pelvic CT scan reformatted to the spine dated 02/09/2021. FINDINGS: Sagittal alignment within normal limits. Schmorl`s nodes and chronic anterior wedging at the L2 and L3. No evidence of acute compression fracture. The distal spinal cord appears normal the conus terminates normally at the upper L2 level. At L1-2 shallow broad-based posterior disc protrusion causes mild thecal sac deformity without stenosis or impingement of the conus neural foramen are widely patent. At L2-3 mild circumferential annular bulge mild facet arthropathy without stenosis of the spinal canal or neural foramen. At L3-4 normal disc height and disc hydration without disc herniation or stenosis of the spinal canal or neural foramen. At L4-5 normal disc height and disc hydration without disc herniation or stenosis the spinal canal or neural foramen. Mild facet hypertrophy. At L5-S1 normal disc height and disc hydration. There postop changes of mature right hemilaminotomy. The spinal canal and neural foramen are widely patent. The included portions of the upper sacroiliac joints are unremarkable. IMPRESSION: 1. At L5-S1 mature right hemilaminotomy. No evidence of recurrent disc herniation or stenosis. Chronic endplate deformities at L2 and L3. No evidence of acute lumbar compression fracture. 2. At L2-3 shallow broad posterior disc bulge and mild facet hypertrophy without central or lateral stenosis. 3. At L1-2 shallow broad posterior disc bulge without stenosis. Dictated by Eric Marsh MD @ 04/30/2024 11:53:50 AM (Electronically Signed)
--- NOTE | 2024-04-29 15:45 | CRLHL7_ITS ---
For Patients: As a result of the Cures Act, medical imaging exams and procedure reports are released immediately into your electronic medical record. You may view this report before your referring provider. If you have questions, please contact your health care provider. INDICATION: Spinal stenosis. TECHNIQUE: Thoracic spine scanned with sagittal T1 sagittal and axial T2 and sagittal STIR images. FINDINGS: Sagittal alignment of the thoracic spine is within normal limits. There is some slight deformity of the superior endplate of T3 consistent with Schmorl`s node or chronic compression. No evidence of acute compression fracture. There are Schmorl`s node endplate changes at mid and lower thoracic levels T7 through T12 on the left. At T5-6 there is a shallow disc protrusion to the left causing mild thecal sac deformity without spinal cord impingement or foraminal stenosis. At T7 a mild disc space narrowing small Schmorl`s nodes. Disc protrusion to the right causing mild thecal sac deformity without spinal cord impingement or foraminal stenosis. At T8-9 there is a small disc extrusion that extends above the disc space level behind the T8 vertebral body causing mild cord deformity without cord compression. Neural foramen are widely patent. At T11-12 small posterior disc bulge without stenosis. Normal thoracic spinal cord signal. IMPRESSION: 1. Multi level thoracic disc degeneration T5-6, T7-8 ,T8-9 and T11-12. 2. Small a moderate cephalad disc extrusion at T8-9 causes mild ventral cord deformity without cord compression. Normal cord signal. 3. Schmorl`s nodes and chronic endplate deformities as described. No evidence of acute compression fracture. Dictated by Eric Marsh MD @ 04/30/2024 11:48:29 AM (Electronically Signed)
== END 2024-04-29 13:54 | disposition home or self-care (01) ==
LOC: MRI 13:56
PROVIDERS: PCP Physician Assistant Medical; Visit Provider Physician Assistant Medical
DX: M48.02 Spinal stenosis, cervical region (principal); M50.322 Other cervical disc degeneration at C5-C6 level; M51.34 Other intervertebral disc degeneration, thoracic region; M51.44 Schmorl's nodes, thoracic region; M54.50 Low back pain, unspecified; M51.26 Other intervertebral disc displacement, lumbar region; G62.9 Polyneuropathy, unspecified; G89.4 Chronic pain syndrome
CPT/HCPCS: 72141; 72146; 72148

== ENCOUNTER 2024-11-18 08:05 | Outpatient (CLI) | payer OTHER, MEDICARE, SELFPAY | END 2024-11-18 08:06 | disposition home or self-care (01) | LOC: NFLDREF 11-19 07:51 | PROVIDERS: PCP Physician Assistant Medical; Referring Provider Physician Assistant Medical; Visit Provider Physician Assistant Medical | DX: E11.9 Type 2 diabetes mellitus without complications (principal); I10 Essential (primary) hypertension; E78.2 Mixed hyperlipidemia; N40.0 Benign prostatic hyperplasia without lower urinary tract symptoms; F41.9 Anxiety disorder, unspecified; G62.9 Polyneuropathy, unspecified; Z79.4 Long term (current) use of insulin | CPT/HCPCS: 80053; 80061; 82043; 82570; 84153; 84443 ==

== ENCOUNTER 2024-12-16 08:40 | Outpatient (CLI) | payer OTHER, MEDICARE, SELFPAY ==
--- NOTE | 2024-12-16 09:47 | P.ANES_ITS ---
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
--- NOTE | 2024-12-16 09:47 | W.ANESCHARGE ---
Anesthesia Charges Start Date/Time Anesthesia Start Date: 12/16/24 Anesthesia Start Time: 09:20 Stop Date/Time Anesthesia Stop Date: 12/16/24 Anesthesia Stop Time: 09:45 Coding CPT Codes CPT Codes: ANES LWR INTST NDSC NOS - 14051 ([id number]) P3 - PATIENT W/SEVERE SYS DISEASE, QZ - SOCIAL SCIENTIST SVC W/O SOCIAL WORK FACULTY MEMBER BY
== END 2024-12-16 08:41 | disposition home or self-care (01) ==
LOC: OP CLINIC 08:41
PROVIDERS: PCP Physician Assistant Medical; Visit Provider Internal Medicine
DX: Z12.11 Encounter for screening for malignant neoplasm of colon (principal); D12.7 Benign neoplasm of rectosigmoid junction; Z86.0100 Personal history of colon polyps, unspecified
CPT/HCPCS: 00811; 45385; 88305; J2704